=== PATIENT | male | born 1960 | race American Indian/Alaskan Native ===

== ENCOUNTER 2016-04-01 07:17 | Outpatient (CLI) | payer BC ==
--- NOTE | 2016-04-01 13:11 | Ultrasound Report ---
Renal ultrasound: The right renal length is 10.6 cm and the left renal length is 10.4 cm. The left kidney is echogenically unremarkable. The right kidney is better evaluated and there is a focal echogenic density in the mid parenchyma with no shadowing. No evidence of renal mass or hydronephrosis is present. Survey imaging of the urinary bladder is unremarkable. Impression: Questionable small renal calculus. No evidence of obstruction or medical renal disease.
== END 2016-04-01 07:18 | disposition home or self-care (01) ==
LOC: US 07:17
PROVIDERS: ATTEND Internal Medicine Nephrology
DX: I12.9 Hypertensive chronic kidney disease with stage 1 through stage 4 chronic kidney disease, or unspecified chronic kidney disease (principal); N18.1 Chronic kidney disease, stage 1; E11.22 Type 2 diabetes mellitus with diabetic chronic kidney disease
CPT/HCPCS: 76770